=== PATIENT | male | born 1955 | race Caucasian/White ===

== ENCOUNTER 2017-08-05 14:37 | Inpatient (IN) | payer OTHER ==
[~2017-08-05] VITALS: Ht 170.2 cm; Wt 117.5 kg
[2017-08-05 15:44] LABS: BASOPHIL % 0.4 % (0-2); PLATELET COUNT 150 x10^3mcL (130-400)
[2017-08-05 15:48] LABS: RED CELL DISTRIBUTION WIDTH 16.9 % (11.5-14.5)
[2017-08-05 15:54] LABS: microscopic required? NO
[2017-08-05 15:59] LABS: ALBUMIN 3.5 g/dL (3.4-5.0); ALKALINE PHOSPHATASE 256 U/L (46-116); ALT/SGPT 22 U/L (16-63); AST/SGOT 27 U/L (15-37); CALCIUM 8.9 mg/dL (8.5-10.1); CARBON DIOXIDE 29.5 mmol/L (21-32); CHLORIDE SERUM 101 mmol/L (98-107); CREATININE SERUM 1.1 mg/dL (0.7-1.3); GFR1 > 60 mL/min; GLUCOSE SERUM 116 mg/dL (74-106); SODIUM SERUM 139 mmol/L (136-145); TOTAL PROTEIN, SERUM 8.2 g/dL (6.4-8.2)
[2017-08-05 16:08] LABS: POTASSIUM SERUM 2.9 mmol/L (3.5-5.1)
[2017-08-05 16:11] LABS: urine erythrocyte NEGATIVE (NEGATIVE)
[2017-08-05] MEDS ORDERED: LOSARTAN POTAS100 M1 PO (17:40)
[2017-08-05] MEDS ORDERED: Z5 PO (17:42)
[2017-08-05] MEDS ORDERED: NATURAL IRON65 MG PO (17:43)
[2017-08-05] MEDS ORDERED: PANTOPRAZOLE SO40 M1 PO (17:43)
[2017-08-05] MEDS ORDERED: CARVEDILOL6.25 M1 PO (17:43)
[2017-08-05] MEDS ORDERED: GOOD SENSE ASPI81 M3 PO (17:43)
[2017-08-05] MEDS ORDERED: PEPCID40 MG PO (17:43)
[2017-08-05] MEDS ORDERED: LIPITOR40 MG PO (17:44)
[2017-08-05] MEDS ORDERED: TRAZODONE100 MG PO (17:44)
[2017-08-05] MEDS ORDERED: PAROXETINE40 M1 PO (17:44)
[2017-08-05] MEDS ORDERED: FUROSEMIDE40 MG PO (17:44)
[2017-08-05 18:40] VITALS: BP 168/101
[2017-08-05 18:41] LABS: MAGNESIUM 1.7 mg/dL (1.8-2.4); PHOSPHOROUS 4.3 mg/dL (2.5-4.9)
[2017-08-05 18:43] LABS: CHOLESTEROL/HDL RATIO 1.2
[2017-08-05 18:49] LABS: T3 TOTAL 1.06 ng/mL
[2017-08-05 18:50] LABS: FREE T4 1.43 ng/dL (0.76-1.46); FREE THYROXINE INDEX 3.8 ug/dL (1.4-4.5); T4(THYROXINE) 9.9 ug/dL (4.7-13.3)
[2017-08-05 21:09] VITALS: BP 157/91
[2017-08-05 22:16] VITALS: BP 129/69
[2017-08-06 06:20] LABS: BASOPHIL % 0.5 % (0-2); PLATELET COUNT 140 x10^3mcL (130-400)
[2017-08-06 06:27] LABS: RED CELL DISTRIBUTION WIDTH 16.5 % (11.5-14.5)
[2017-08-06 06:35] VITALS: BP 138/83
[2017-08-06 06:51] LABS: CALCIUM 8.3 mg/dL (8.5-10.1); CARBON DIOXIDE 27.5 mmol/L (21-32); CHLORIDE SERUM 105 mmol/L (98-107); CREATININE SERUM 1.2 mg/dL (0.7-1.3); GFR1 > 60 mL/min; GLUCOSE SERUM 97 mg/dL (74-106); MAGNESIUM 2.2 mg/dL (1.8-2.4); POTASSIUM SERUM 3.5 mmol/L (3.5-5.1); SODIUM SERUM 140 mmol/L (136-145)
[2017-08-06 08:57] VITALS: BP 133/71
[2017-08-06 12:37] VITALS: BP 145/99
[2017-08-06 17:46] VITALS: BP 131/72
[2017-08-06 20:21] VITALS: BP 149/88
[2017-08-07 06:23] VITALS: BP 144/86
[2017-08-07 06:29] LABS: CALCIUM 8.7 mg/dL (8.5-10.1); CARBON DIOXIDE 29.8 mmol/L (21-32); CHLORIDE SERUM 100 mmol/L (98-107); CREATININE SERUM 1.1 mg/dL (0.7-1.3); GFR1 > 60 mL/min; GLUCOSE SERUM 88 mg/dL (74-106); MAGNESIUM 1.9 mg/dL (1.8-2.4); PHOSPHOROUS 4.3 mg/dL (2.5-4.9); SODIUM SERUM 139 mmol/L (136-145)
[2017-08-07 06:42] LABS: BASOPHIL % 0.4 % (0-2); PLATELET COUNT 158 x10^3mcL (130-400)
[2017-08-07 07:11] LABS: RED CELL DISTRIBUTION WIDTH 16.8 % (11.5-14.5)
[2017-08-07 09:00] VITALS: BP 140/85
[2017-08-07 12:04] VITALS: BP 161/89
[2017-08-07 16:20] VITALS: BP 139/88
[2017-08-07 20:59] VITALS: BP 144/84
[2017-08-08 05:31] VITALS: BP 122/74
[2017-08-08 06:20] LABS: BASOPHIL % 0.4 % (0-2); PLATELET COUNT 158 x10^3mcL (130-400)
[2017-08-08 06:37] LABS: RED CELL DISTRIBUTION WIDTH 16.8 % (11.5-14.5)
[2017-08-08 06:49] LABS: CALCIUM 8.6 mg/dL (8.5-10.1); CARBON DIOXIDE 32.5 mmol/L (21-32); CHLORIDE SERUM 102 mmol/L (98-107); CREATININE SERUM 0.9 mg/dL (0.7-1.3); GFR1 > 60 mL/min; GLUCOSE SERUM 93 mg/dL (74-106); MAGNESIUM 1.8 mg/dL (1.8-2.4); PHOSPHOROUS 3.7 mg/dL (2.5-4.9); POTASSIUM SERUM 3.3 mmol/L (3.5-5.1); SODIUM SERUM 139 mmol/L (136-145)
[2017-08-08 08:23] VITALS: BP 136/85
[2017-08-08] MEDS ORDERED: KLOR-CON M2020 MEQ PO (10:58)
[2017-08-08 11:34] VITALS: BP 136/85
[2017-08-08 12:56] VITALS: BP 138/90
== END 2017-08-08 13:50 | disposition home or self-care (01) | DRG 47 ==
LOC: ED 14:37 → DU 17:23
PROVIDERS: Emergency Medicine; Family Medicine Sports Medicine; ADMIT Family Medicine
DX: G45.9 Transient cerebral ischemic attack, unspecified (principal); N17.0 Acute kidney failure with tubular necrosis; K70.30 Alcoholic cirrhosis of liver without ascites; I11.0 Hypertensive heart disease with heart failure; I50.9 Heart failure, unspecified; I48.2 Chronic atrial fibrillation; Z68.41 Body mass index [BMI] 40.0-44.9, adult; E83.42 Hypomagnesemia; E87.6 Hypokalemia; K21.9 Gastro-esophageal reflux disease without esophagitis; D64.9 Anemia, unspecified; F32.9 Major depressive disorder, single episode, unspecified; Z79.82 Long term (current) use of aspirin; Z79.899 Other long term (current) drug therapy
CPT/HCPCS: 83880; 84439; 94150; J1644; J3475; J3480; J7030; Q0092

== ENCOUNTER 2017-10-22 14:26 | Emergency (ER) | payer OTHER ==
[~2017-10-22 14:26] MED LIST: CARVEDILOL6.25 M1 PO; FUROSEMIDE40 MG PO; GOOD SENSE ASPI81 M3 PO; KLOR-CON M2020 MEQ PO; LIPITOR40 MG PO; LOSARTAN POTAS100 M1 PO; NATURAL IRON65 MG PO; PANTOPRAZOLE SO40 M1 PO; PAROXETINE40 M1 PO; PEPCID40 MG PO; TRAZODONE100 MG PO; Z5 PO
[2017-10-22 15:39] VITALS: BP 132/75
[2017-10-22 16:15] LABS: BASOPHIL % 0.5 % (0-2); PLATELET COUNT 210 x10^3mcL (130-400)
[2017-10-22 16:16] LABS: RED CELL DISTRIBUTION WIDTH 17.5 % (11.5-14.5)
[2017-10-22 16:21] LABS: CALCIUM 8.3 mg/dL (8.5-10.1); CHLORIDE SERUM 105 mmol/L (98-107); CREATININE SERUM 1.1 mg/dL (0.7-1.3); GFR1 > 60 mL/min; GLUCOSE SERUM 95 mg/dL (74-106); POTASSIUM SERUM 4.1 mmol/L (3.5-5.1); SODIUM SERUM 141 mmol/L (136-145)
[2017-10-22 16:28] LABS: ALBUMIN 3.5 g/dL (3.4-5.0); ALKALINE PHOSPHATASE 142 U/L (46-116); ALT/SGPT 21 U/L (16-63); AST/SGOT 20 U/L (15-37); BILIRUBIN TOTAL 0.32 mg/dL (0.20-1.00)
== END 2017-10-22 16:59 | disposition left against medical advice (07) ==
LOC: ED 14:26
PROVIDERS: Emergency Medicine
DX: F10.129 Alcohol abuse with intoxication, unspecified (principal); I10 Essential (primary) hypertension; E78.00 Pure hypercholesterolemia, unspecified
CPT/HCPCS: 36415; G0480; Q0092

== ENCOUNTER 2017-11-21 22:01 | Inpatient (IN) | payer OTHER ==
[~2017-11-21] VITALS: Ht 170.2 cm; Wt 102.2 kg
[2017-11-21 23:00] LABS: BASOPHIL % 0.5 % (0-2); PLATELET COUNT 215 x10^3mcL (130-400)
[2017-11-21 23:05] LABS: RED CELL DISTRIBUTION WIDTH 16.9 % (11.5-14.5)
[2017-11-21 23:08] LABS: CALCIUM 7.8 mg/dL (8.5-10.1); CARBON DIOXIDE 26.6 mmol/L (21-32); CHLORIDE SERUM 105 mmol/L (98-107); CREATININE SERUM 0.8 mg/dL (0.7-1.3); GFR1 > 60 mL/min; GLUCOSE SERUM 90 mg/dL (74-106); POTASSIUM SERUM 3.9 mmol/L (3.5-5.1); SODIUM SERUM 145 mmol/L (136-145)
[2017-11-21 23:14] LABS: ALBUMIN 3.8 g/dL (3.4-5.0); ALKALINE PHOSPHATASE 119 U/L (46-116); ALT/SGPT 14 U/L (16-63); AST/SGOT 22 U/L (15-37); BILIRUBIN TOTAL 0.3 mg/dL (0.20-1.00); TOTAL PROTEIN, SERUM 8.4 g/dL (6.4-8.2)
[2017-11-22 00:38] VITALS: BP 191/115
[2017-11-22 03:37] LABS: MAGNESIUM 1.9 mg/dL (1.8-2.4); PHOSPHOROUS 3.4 mg/dL (2.5-4.9); T3 TOTAL 0.95 ng/mL
[2017-11-22 03:39] LABS: CHOLESTEROL/HDL RATIO 1.7
[2017-11-22 03:42] LABS: FREE T4 0.91 ng/dL (0.76-1.46); FREE THYROXINE INDEX 1.7 ug/dL (1.4-4.5); T4(THYROXINE) 5.2 ug/dL (4.7-13.3)
[2017-11-22 05:49] VITALS: BP 106/64
[2017-11-22 07:43] LABS: BASOPHIL % 0.5 % (0-2); PLATELET COUNT 182 x10^3mcL (130-400)
[2017-11-22 07:48] LABS: RED CELL DISTRIBUTION WIDTH 17.2 % (11.5-14.5)
[2017-11-22 07:51] LABS: CALCIUM 7.6 mg/dL (8.5-10.1); CARBON DIOXIDE 23.4 mmol/L (21-32); CHLORIDE SERUM 108 mmol/L (98-107); CREATININE SERUM 0.8 mg/dL (0.7-1.3); GFR1 > 60 mL/min; GLUCOSE SERUM 84 mg/dL (74-106); MAGNESIUM 1.7 mg/dL (1.8-2.4); PHOSPHOROUS 3.6 mg/dL (2.5-4.9); POTASSIUM SERUM 3.5 mmol/L (3.5-5.1); SODIUM SERUM 146 mmol/L (136-145)
[2017-11-22 09:25] VITALS: BP 140/95
[2017-11-22] MEDS ORDERED: ATORVASTATIN CA40 M1 PO (11:58)
[2017-11-22] MEDS ORDERED: NOR5 PO (11:58)
[2017-11-22] MEDS ORDERED: LASIX40 MG PO (12:02)
[2017-11-22 12:25] LABS: microscopic required? NO
[2017-11-22 12:33] LABS: urine erythrocyte NEGATIVE (NEGATIVE)
[2017-11-22 12:44] VITALS: BP 135/79
[2017-11-22 12:46] LABS: AMPHETAMINE QUAL UR NONE DETECTED (NEG <=1000)
[2017-11-22 17:05] VITALS: BP 160/85
[2017-11-22 20:25] VITALS: BP 171/98
[2017-11-23 05:58] VITALS: BP 137/81
[2017-11-23 07:11] LABS: CARBON DIOXIDE 28.4 mmol/L (21-32); CHLORIDE SERUM 99 mmol/L (98-107); CREATININE SERUM 0.9 mg/dL (0.7-1.3); GFR1 > 60 mL/min; GLUCOSE SERUM 96 mg/dL (74-106); MAGNESIUM 1.7 mg/dL (1.8-2.4); POTASSIUM SERUM 3.4 mmol/L (3.5-5.1); SODIUM SERUM 138 mmol/L (136-145)
[2017-11-23 07:17] LABS: BASOPHIL % 0.3 % (0-2); PLATELET COUNT 140 x10^3mcL (130-400); RED CELL DISTRIBUTION WIDTH 16.6 % (11.5-14.5)
[2017-11-23 09:15] VITALS: BP 130/73
[2017-11-23 12:45] VITALS: BP 130/88
[2017-11-23 13:13] VITALS: BP 110/71
[2017-11-23 16:45] VITALS: BP 127/78
[2017-11-23 22:05] VITALS: BP 154/76
[2017-11-24 05:55] VITALS: BP 114/74
[2017-11-24 07:04] LABS: BASOPHIL % 0.3 % (0-2); PLATELET COUNT 133 x10^3mcL (130-400)
[2017-11-24 07:17] LABS: CALCIUM 8.3 mg/dL (8.5-10.1); CARBON DIOXIDE 29.7 mmol/L (21-32); CHLORIDE SERUM 101 mmol/L (98-107); CREATININE SERUM 1.1 mg/dL (0.7-1.3); GFR1 > 60 mL/min; GLUCOSE SERUM 100 mg/dL (74-106); POTASSIUM SERUM 3.3 mmol/L (3.5-5.1); SODIUM SERUM 139 mmol/L (136-145)
[2017-11-24 07:19] LABS: RED CELL DISTRIBUTION WIDTH 16.7 % (11.5-14.5)
[2017-11-24] MEDS ORDERED: LEVAQUIN750 MG PO (08:48)
[2017-11-24] MEDS ORDERED: CLEOCIN HCL300 MG PO (08:53)
[2017-11-24] MEDS ORDERED: LAC PO (08:54)
[2017-11-24 11:24] VITALS: Ht 170.2 cm; Wt 102.2 kg
[2017-11-24 13:17] VITALS: BP 116/80
== END 2017-11-24 15:18 | disposition home or self-care (01) | DRG 203 ==
LOC: ED 22:01 → DU 23:54
PROVIDERS: Emergency Medicine; Family Medicine
DX: M94.0 Chondrocostal junction syndrome [Tietze] (principal); I50.30 Unspecified diastolic (congestive) heart failure; K70.30 Alcoholic cirrhosis of liver without ascites; I48.91 Unspecified atrial fibrillation; I48.2 Chronic atrial fibrillation; F10.229 Alcohol dependence with intoxication, unspecified; F10.239 Alcohol dependence with withdrawal, unspecified; E78.5 Hyperlipidemia, unspecified; I12.9 Hypertensive chronic kidney disease with stage 1 through stage 4 chronic kidney disease, or unspecified chronic kidney disease; Z79.899 Other long term (current) drug therapy; F32.9 Major depressive disorder, single episode, unspecified
CPT/HCPCS: 83880; 84439; 97110-GP; 97116-GP; 97530-GP; G0480; J0360; J1885; J1940; J1956; J2060; J2270; J2405; J3475; J3490; J7030; J7620; Q0092

== ENCOUNTER 2017-12-05 19:08 | Emergency (ER) | payer OTHER ==
[~2017-12-05] VITALS: Ht 170.2 cm; Wt 95.2 kg
[~2017-12-05 19:08] MED LIST changes: +ATORVASTATIN CA40 M1 PO; +CLEOCIN HCL300 MG PO; +LAC PO; +LASIX40 MG PO; +LEVAQUIN750 MG PO; +NOR5 PO
[2017-12-05 19:47] VITALS: BP 130/81; Ht 170.2 cm; Wt 95.2 kg
[2017-12-05 20:54] LABS: BASOPHIL % 0.4 % (0-2); PLATELET COUNT 188 x10^3mcL (130-400)
[2017-12-05 20:59] LABS: RED CELL DISTRIBUTION WIDTH 15.7 % (11.5-14.5)
[2017-12-05 21:03] LABS: CALCIUM 8.5 mg/dL (8.5-10.1); CARBON DIOXIDE 27.9 mmol/L (21-32); CHLORIDE SERUM 102 mmol/L (98-107); GFR1 > 60 mL/min; GLUCOSE SERUM 99 mg/dL (74-106); POTASSIUM SERUM 3.2 mmol/L (3.5-5.1); SODIUM SERUM 141 mmol/L (136-145)
[2017-12-05 21:08] LABS: ALBUMIN 3.5 g/dL (3.4-5.0); ALKALINE PHOSPHATASE 144 U/L (46-116); ALT/SGPT 27 U/L (16-63); AST/SGOT 26 U/L (15-37); BILIRUBIN TOTAL 0.4 mg/dL (0.20-1.00); TOTAL PROTEIN, SERUM 8.5 g/dL (6.4-8.2)
== END 2017-12-05 21:57 | disposition home or self-care (01) ==
LOC: ED 19:08
PROVIDERS: Emergency Medicine
DX: S00.03XA Contusion of scalp, initial encounter (principal); R55 Syncope and collapse; E87.6 Hypokalemia; F10.10 Alcohol abuse, uncomplicated; M54.2 Cervicalgia; I10 Essential (primary) hypertension; I50.9 Heart failure, unspecified; E78.00 Pure hypercholesterolemia, unspecified; W18.30XA Fall on same level, unspecified, initial encounter; Y93.89 Activity, other specified; Y92.89 Other specified places as the place of occurrence of the external cause; Y99.8 Other external cause status
CPT/HCPCS: 36415; J7030

== ENCOUNTER 2017-12-06 19:00 | Emergency (ER) | payer OTHER ==
[~2017-12-06] VITALS: Ht 170.2 cm; Wt 90.7 kg
[2017-12-06 19:08] VITALS: BP 109/73; Ht 170.2 cm; Wt 90.7 kg
== END 2017-12-06 21:12 | disposition home or self-care (01) ==
LOC: ED 19:00
DX: S50.311A Abrasion of right elbow, initial encounter (principal); F10.129 Alcohol abuse with intoxication, unspecified; I10 Essential (primary) hypertension; E78.00 Pure hypercholesterolemia, unspecified; I48.91 Unspecified atrial fibrillation; K74.60 Unspecified cirrhosis of liver; Z86.79 Personal history of other diseases of the circulatory system; W18.30XA Fall on same level, unspecified, initial encounter; Y93.89 Activity, other specified; Y92.89 Other specified places as the place of occurrence of the external cause; Y99.8 Other external cause status

== ENCOUNTER 2018-01-31 15:39 | Inpatient (IN) | payer OTHER ==
[~2018-01-31] VITALS: Ht 170.2 cm; Wt 108.4 kg
[2018-01-31 15:42] VITALS: Ht 170.2 cm; Wt 108.4 kg
[2018-01-31 16:17] LABS: BASOPHIL % 0.6 % (0-2); PLATELET COUNT 177 x10^3mcL (130-400)
[2018-01-31 16:27] LABS: microscopic required? NO
[2018-01-31 16:31] LABS: RED CELL DISTRIBUTION WIDTH 17.6 % (11.5-14.5)
[2018-01-31 16:39] LABS: CARBON DIOXIDE 31.9 mmol/L (21-32); CHLORIDE SERUM 104 mmol/L (98-107); GFR1 > 60 mL/min; GLUCOSE SERUM 104 mg/dL (74-106); POTASSIUM SERUM 3.2 mmol/L (3.5-5.1); SODIUM SERUM 144 mmol/L (136-145)
[2018-01-31 16:50] LABS: ALBUMIN 3.7 g/dL (3.4-5.0); ALKALINE PHOSPHATASE 149 U/L (46-116); ALT/SGPT 19 U/L (16-63); AMYLASE 46 U/L (25-115); AST/SGOT 24 U/L (15-37); BILIRUBIN TOTAL 0.4 mg/dL (0.20-1.00); CHOLESTEROL 143 mg/dL (<200); LIPASE 131 IU/L (73-393); MAGNESIUM 1.7 mg/dL (1.8-2.4); T4(THYROXINE) 5.3 ug/dL (4.7-13.3); TOTAL PROTEIN, SERUM 8.2 g/dL (6.4-8.2)
[2018-01-31 16:53] LABS: UA SPECIFIC GRAVITY 1.015 (1.005-1.035); urine erythrocyte NEGATIVE (NEGATIVE)
[2018-01-31 16:53] LABS: HDL CHOLESTEROL 75 mg/dL (40-60)
[2018-01-31 16:59] LABS: AMPHETAMINE QUAL UR NONE DETECTED (NEG <=1000)
[2018-01-31 19:46] VITALS: BP 163/103
[2018-02-01] VITALS (9 sets, daily range): BP systolic 109–205; BP diastolic 74–121
[2018-02-01 10:15] LABS: CALCIUM 8.1 mg/dL (8.5-10.1); CARBON DIOXIDE 32.7 mmol/L (21-32); CHLORIDE SERUM 101 mmol/L (98-107); CREATININE SERUM 0.9 mg/dL (0.7-1.3); GFR1 > 60 mL/min; GLUCOSE SERUM 110 mg/dL (74-106); MAGNESIUM 1.8 mg/dL (1.8-2.4); PHOSPHOROUS 3.7 mg/dL (2.5-4.9); POTASSIUM SERUM 3.4 mmol/L (3.5-5.1); SODIUM SERUM 139 mmol/L (136-145)
[2018-02-01 11:21] LABS: BASOPHIL % 0.4 % (0-2); PLATELET COUNT 153 x10^3mcL (130-400)
[2018-02-01 11:27] LABS: RED CELL DISTRIBUTION WIDTH 17.7 % (11.5-14.5)
[2018-02-02 01:49] VITALS: BP 113/65
[2018-02-02 05:28] VITALS: BP 128/86
[2018-02-02 07:22] LABS: CALCIUM 8.5 mg/dL (8.5-10.1); CARBON DIOXIDE 31.7 mmol/L (21-32); CHLORIDE SERUM 100 mmol/L (98-107); CREATININE SERUM 0.9 mg/dL (0.7-1.3); GFR1 > 60 mL/min; GLUCOSE SERUM 94 mg/dL (74-106); POTASSIUM SERUM 3.3 mmol/L (3.5-5.1); SODIUM SERUM 137 mmol/L (136-145)
[2018-02-02 07:48] VITALS: BP 153/104; BP 153/140
[2018-02-02 08:14] LABS: BASOPHIL % 0.6 % (0-2); PLATELET COUNT 144 x10^3mcL (130-400); RED CELL DISTRIBUTION WIDTH 17.3 % (11.5-14.5)
[2018-02-02] MEDS ORDERED: APAP/HYDROCODON1 T13 PO (11:16)
[2018-02-02] MEDS ORDERED: CORE25 PO (11:22)
[2018-02-02] MEDS ORDERED: ECO81 PO (11:23)
[2018-02-02] MEDS ORDERED: COZ50 PO (11:23)
[2018-02-02] MEDS ORDERED: COL100 PO (11:27)
[2018-02-02] MEDS ORDERED: LASIX40 MG PO (11:51)
[2018-02-02 12:23] VITALS: BP 153/104
[2018-02-02 13:14] VITALS: BP 142/105
== END 2018-02-02 14:15 | disposition home or self-care (01) | DRG 751 ==
LOC: ED 15:39 → DU 18:25
PROVIDERS: Emergency Medicine; Family Medicine
DX: F33.2 Major depressive disorder, recurrent severe without psychotic features (principal); G92 Toxic encephalopathy; R45.851 Suicidal ideations; I11.0 Hypertensive heart disease with heart failure; I50.9 Heart failure, unspecified; E83.42 Hypomagnesemia; K70.30 Alcoholic cirrhosis of liver without ascites; E78.00 Pure hypercholesterolemia, unspecified; I48.91 Unspecified atrial fibrillation; F41.9 Anxiety disorder, unspecified; Y90.9 Presence of alcohol in blood, level not specified; E66.9 Obesity, unspecified; E87.6 Hypokalemia; F10.229 Alcohol dependence with intoxication, unspecified; G89.29 Other chronic pain; M54.9 Dorsalgia, unspecified; M54.2 Cervicalgia; K21.9 Gastro-esophageal reflux disease without esophagitis; E78.5 Hyperlipidemia, unspecified; Z86.73 Personal history of transient ischemic attack (TIA), and cerebral infarction without residual deficits; Z68.36 Body mass index [BMI] 36.0-36.9, adult
CPT/HCPCS: 82962; 83880; G0480; J0360; J1885; J7030; Q0092

== ENCOUNTER 2018-02-11 15:50 | Emergency (ER) | payer OTHER ==
[~2018-02-11] VITALS: Ht 170.2 cm; Wt 108.9 kg
[~2018-02-11 15:50] MED LIST changes: +APAP/HYDROCODON1 T13 PO; +COL100 PO; +CORE25 PO; +COZ50 PO; +ECO81 PO
[2018-02-11 15:55] VITALS: Ht 170.2 cm; Wt 108.9 kg
[2018-02-11 17:32] LABS: CALCIUM 8.2 mg/dL (8.5-10.1); CARBON DIOXIDE 25.1 mmol/L (21-32); CHLORIDE SERUM 104 mmol/L (98-107); CREATININE SERUM 0.9 mg/dL (0.7-1.3); GFR1 > 60 mL/min; GLUCOSE SERUM 99 mg/dL (74-106); SODIUM SERUM 144 mmol/L (136-145)
[2018-02-11 17:35] LABS: BASOPHIL % 0.4 % (0-2); PLATELET COUNT 156 x10^3mcL (130-400)
[2018-02-11 17:37] LABS: ALBUMIN 3.8 g/dL (3.4-5.0); ALKALINE PHOSPHATASE 134 U/L (46-116); ALT/SGPT 23 U/L (16-63); AST/SGOT 32 U/L (15-37); BILIRUBIN TOTAL 0.6 mg/dL (0.20-1.00); TOTAL PROTEIN, SERUM 8.2 g/dL (6.4-8.2)
[2018-02-11 17:49] LABS: CK-MB 0.7 ng/mL (0-3.6)
[2018-02-11 17:50] LABS: RED CELL DISTRIBUTION WIDTH 18.3 % (11.5-14.5)
[2018-02-11 19:22] VITALS: BP 141/87
[2018-02-11 20:00] LABS: AMPHETAMINE QUAL UR NONE DETECTED (NEG <=1000)
== END 2018-02-11 19:10 | disposition home or self-care (01) ==
LOC: ED 15:50
PROVIDERS: Emergency Medicine
DX: F10.129 Alcohol abuse with intoxication, unspecified (principal); I11.0 Hypertensive heart disease with heart failure; I50.9 Heart failure, unspecified; E78.00 Pure hypercholesterolemia, unspecified; K74.60 Unspecified cirrhosis of liver; F31.9 Bipolar disorder, unspecified
CPT/HCPCS: 83880; G0480; J1885; J2060; J3490; J7620

== ENCOUNTER 2018-02-28 21:25 | Inpatient (IN) | payer OTHER ==
[~2018-02-28] VITALS: Ht 170.2 cm; Wt 109.4 kg
[2018-02-28 21:35] VITALS: Ht 170.2 cm; Wt 109.4 kg
[2018-02-28 22:38] LABS: BASOPHIL % 0.6 % (0-2); PLATELET COUNT 222 x10^3mcL (130-400)
[2018-02-28 22:40] LABS: RED CELL DISTRIBUTION WIDTH 18.8 % (11.5-14.5)
[2018-02-28 22:52] LABS: CALCIUM 7.5 mg/dL (8.5-10.1); CARBON DIOXIDE 27.3 mmol/L (21-32); CHLORIDE SERUM 108 mmol/L (98-107); CREATININE SERUM 0.9 mg/dL (0.7-1.3); GFR1 > 60 mL/min; GLUCOSE SERUM 87 mg/dL (74-106); POTASSIUM SERUM 3.1 mmol/L (3.5-5.1); SODIUM SERUM 147 mmol/L (136-145)
[2018-02-28 22:58] LABS: ALBUMIN 3.6 g/dL (3.4-5.0); ALKALINE PHOSPHATASE 147 U/L (46-116); ALT/SGPT 18 U/L (16-63); AST/SGOT 20 U/L (15-37); TOTAL PROTEIN, SERUM 7.7 g/dL (6.4-8.2)
[2018-03-01 00:30] LABS: T3 TOTAL 0.69 ng/mL
[2018-03-01 00:32] LABS: MAGNESIUM 1.9 mg/dL (1.8-2.4); PHOSPHOROUS 2.7 mg/dL (2.5-4.9)
[2018-03-01 00:33] LABS: CHOLESTEROL/HDL RATIO 2.1
[2018-03-01 01:16] LABS: FREE T4 1.16 ng/dL (0.76-1.46); FREE THYROXINE INDEX 2.3 ug/dL (1.4-4.5); T4(THYROXINE) 6.9 ug/dL (4.7-13.3)
[2018-03-01 01:22] VITALS: BP 157/103
[2018-03-01 05:16] VITALS: BP 103/58
[2018-03-01 06:43] LABS: BASOPHIL % 0.7 % (0-2); PLATELET COUNT 196 x10^3mcL (130-400)
[2018-03-01 06:50] LABS: CALCIUM 7.7 mg/dL (8.5-10.1); CARBON DIOXIDE 23.4 mmol/L (21-32); CHLORIDE SERUM 110 mmol/L (98-107); CREATININE SERUM 0.7 mg/dL (0.7-1.3); GFR1 > 60 mL/min; GLUCOSE SERUM 69 mg/dL (74-106); POTASSIUM SERUM 3.2 mmol/L (3.5-5.1); SODIUM SERUM 144 mmol/L (136-145)
[2018-03-01 07:00] LABS: RED CELL DISTRIBUTION WIDTH 18.3 % (11.5-14.5)
[2018-03-01 08:51] VITALS: BP 115/49
[2018-03-01 08:57] VITALS: BP 124/61
[2018-03-01 09:42] LABS: UA SPECIFIC GRAVITY >=1.030 (1.005-1.035); microscopic required? YES; urine erythrocyte NEGATIVE (NEGATIVE)
[2018-03-01 10:48] LABS: AMPHETAMINE QUAL UR NONE DETECTED (NEG <=1000)
[2018-03-01 13:03] VITALS: BP 130/74
== END 2018-03-01 16:19 | disposition home or self-care (01) | DRG 280 ==
LOC: ED 21:25 → DU 23:39
PROVIDERS: Emergency Medicine; Family Medicine
DX: K70.30 Alcoholic cirrhosis of liver without ascites (principal); N17.0 Acute kidney failure with tubular necrosis; G92 Toxic encephalopathy; F33.2 Major depressive disorder, recurrent severe without psychotic features; E87.0 Hyperosmolality and hypernatremia; I42.0 Dilated cardiomyopathy; I11.0 Hypertensive heart disease with heart failure; I50.30 Unspecified diastolic (congestive) heart failure; E83.51 Hypocalcemia; I48.91 Unspecified atrial fibrillation; E86.0 Dehydration; K21.9 Gastro-esophageal reflux disease without esophagitis; F10.129 Alcohol abuse with intoxication, unspecified; E87.6 Hypokalemia; G89.29 Other chronic pain; M54.2 Cervicalgia; G47.00 Insomnia, unspecified; D64.9 Anemia, unspecified; I08.3 Combined rheumatic disorders of mitral, aortic and tricuspid valves; Z86.73 Personal history of transient ischemic attack (TIA), and cerebral infarction without residual deficits; Z59.0 Homelessness
CPT/HCPCS: 83880; 84439; G0480; J7030